=== PATIENT | female | born 1970 | race Caucasian/White ===

== ENCOUNTER 2016-08-11 08:30 | Emergency (ER) | payer BC ==
[~2016-08-11] VITALS: Ht 167.6 cm; Wt 85.0 kg
[~2016-08-11 08:30] MED LIST: DOXYCYCLINE HY100 M3 PO; IBUPROFEN800 MG PO; LORTAB 5-325 M1 EACH PO; MOTRIN600 MG PO; NAPROSYN500 MG PO; PERCOCET 5/31 TABLET PO; ROXICET 5-3251 EACH PO; SERTRALINE HCL25 MG PO; XANAX0.25 MG PO; ZOFRAN4 MG PO; ZOLOFT50 MG PO
[2016-08-11 09:06] LABS: ADD MIUA? YES; BILIRUBIN NEGATIVE; BLOOD NEGATIVE; COLOR YELLOW ((YELLOW)); GLUCOSE (STRIP) NEGATIVE; KETONES NEGATIVE; LEUKOCYTES NEGATIVE; NITRITE NEGATIVE; PROTEIN (STRIP) 30; UROBILINOGEN 0.2 MG/DL (0.2-1.0)
[2016-08-11 09:14] LABS: HEMATOCRIT 39.9 % (36.0-46.0); MCH 31.3 PG (29.0-34.0); MCHC 33.6 G/DL (30.0-36.0); MCV 93.2 FL (83-99); MEAN PLAT.VOLUME 9.2 uM^3 (9.5-12.4); PLATELET COUNT 219 K/uL (156-360); RBC DIS.WIDTH-CV 11.7 % (11.8-14.6); RBC DIS.WIDTH-SD 39.8 % (39-53); RED BLOOD COUNT 4.28 M/uL (3.80-5.20); WHITE BLOOD COUNT 8.5 K/uL (4.1-10.2)
[2016-08-11 09:19] LABS: BACTERIA RARE /HPF; EPITHELIAL CELLS 1+ /HPF; GRANULAR CASTS 0-5 /LPF; MUCUS TRACE /LPF; RED BLOOD CELLS 0-5 /HPF (0-5); UCUL ADDED? NO; WHITE BLOOD CELLS 0-5 /HPF (0-5)
[2016-08-11 09:28] LABS: CHLORIDE 106 mEq/L (99-109); POTASSIUM 3.8 mEq/L (3.7-5.4); SODIUM 137 mEq/L (136-147)
[2016-08-11 09:31] LABS: GLUCOSE 91 mg/dL (70-99)
[2016-08-11 09:32] LABS: ANION GAP 8 MEQ/L (2-14); TOTAL BILIRUBIN 0.4 mg/dL (0.0-1.0)
[2016-08-11 09:34] LABS: ALKALINE PHOSPHATASE 47 IU/L (3-129); GFR ESTIMATE (CALCULATED) > 59 mL/min/
[2016-08-11 09:35] LABS: UREA NITROGEN (BUN) 19 mg/dL (9-23)
[2016-08-11] MEDS ORDERED: NAPROSYN500 MG PO (11:58)
[2016-08-11] MEDS ORDERED: TRAMADOL HCL50 MG PO (11:58)
[2016-08-11 12:16] VITALS: BP 161/105
== END 2016-08-11 12:16 | disposition home or self-care (01) ==
LOC: EME 08:30
PROVIDERS: Nurse Practitioner Family
DX: R10.32 Left lower quadrant pain (principal); N20.0 Calculus of kidney; N83.202 Unspecified ovarian cyst, left side; K42.9 Umbilical hernia without obstruction or gangrene; K59.00 Constipation, unspecified; J45.909 Unspecified asthma, uncomplicated; F32.9 Major depressive disorder, single episode, unspecified; Z90.710 Acquired absence of both cervix and uterus
CPT/HCPCS: 74020; 74176; 80053; 81003; 85027; 99281; 99284; J1885